=== PATIENT | male | born 2000 | race Caucasian/White ===

== ENCOUNTER 2019-05-24 02:36 | Emergency (ER) | payer SELFPAY ==
[2019-05-24 02:41] VITALS: BP 135/79; PULSE 99; RESP 18; O2SAT 98; BMI 33.3
--- NOTE | 2019-05-24 02:45 | ED_ITS ---
HPI - Abdominal Pain General: Chief Complaint: Abdominal Pain Stated Complaint: ABDOMEN PAIN Time Seen by Provider: 05/24/19 02:40 History of Present Illness: HPI narrative: Hector is a 18-year-old male who comes in complaining of midline lower abdominal pain for the past 2 months intermittently. He states tonight the pain is come on and is much more severe than normal and is caused him to feel nauseated and vomit. He denies any testicular pain or dysuria. He denies any fevers or chills or diarrhea. He is unaware of anything makes the pain better or worse. He is not tried nothing at home for this. He came in tonight because his symptoms are much worse than normal. Associated Symptoms: Reports nausea and vomiting; Denies chills, coffee ground emesis, constipation, GI cramping, diarrhea, dysuria, fever(s), hematochezia, hematuria, hematemesis, melena and syncope Review of Systems General: Reports: other (negative unless marked) Const: Denies: fever, chills, body aches, fatigue, malaise or diaphoresis Eyes: Denies: change in vision or blurry vision ENMT: Denies: throat pain, painful swallowing, hoarseness, ear pain, ear discharge, Change in hearing or nasal discharge Card: Denies: chest pain, palpitations, irregular heart rhythm, syncope, pre- syncope, shortness of breath on exertion or shortness of breath when lying down Resp: Denies: shortness of breath, productive cough, non-productive cough, wheezing, coughing up blood or chest congestion GI: Reports: abdominal pain, nausea and vomiting; Denies: vomiting blood, coffee grounds in vomit, diarrhea, constipation, cramping, blood in stool or black tarry stool : Denies: flank pain, difficulty urinating, painful urination, urinary frequency, urinary urgency, decreased urine ouput, urinary incontinence or blood in urine Musc: Denies: neck pain, back pain, extremity pain, extremity swelling, joint pain, joint swelling, joint warmth or joint stiffness Skin/Breast: Denies: rash, skin tenderness or yellow skin Neuro: Denies: headache, numbness in extremities, weakness in extremities, changes in sensation, lack of coordination, difficulty walking, dizziness, vertigo or confusion Endo: Denies: excessive thirst, tired all the time, cold intolerance, excessive sweating, flushing or hot flashes Marc/Lymph: Denies: easy bruising, easy bleeding, petechiae or enlarged lymph nodes All/Imm: Denies: hives, throat swelling, tongue swelling, facial swelling or acute wheezing PFSH ED PFSH: Medical History (Updated 05/24/19 @ 04:29 by Nelly Kang) Hypothyroidism Surgical History (Updated 05/24/19 @ 03:21 by Nelly Kang) History of adenoidectomy History of tonsillectomy Social History Smoking and tobacco status: current every day smoker Physical Exam Const: COMMON NORMALS: no apparent distress, oriented x3, no limitations, healthy appearing and well nourished EXAM LIMITATIONS: no altered mental status GENERAL APPEARANCE: cooperative, well kempt and well developed ORIENTATION/CONSCIOUSNESS: Yes awake HENMT: COMMON NORMALS: normocephalic, head/scalp atraumatic, hearing grossly normal bilaterally, external ears normal, EAC's normal, external nose normal and moist oral mucous membranes HEAD & SCALP: normal to inspection, normocephalic and atraumatic FACE & SINUS: normal facial exam and face symmetric NOSE: external nose normal and nares normal EXTERNAL EAR: Yes external ears normal EXTERNAL AUDITORY CANAL: EAC's normal MOUTH: oral and palatal mucosa normal and tongue normal Eye: COMMON NORMALS: PERRL, EOMs intact bilaterally, conjunctivae normal and no scleral icterus GENERAL EYE: normal appearance of both eyes and normal light reflex CONJUNCTIVA: Yes conjunctivae normal SCLERA: sclerae normal CORNEA: Yes corneas normal PUPIL: Yes PERRL DIRECT OPHTHALMOSCOPY: Yes normal light reflex Neck/C-Spine: COMMON NORMALS: full ROM, no lymphadenopathy, supple, no meningeal signs and no JVD GENERAL: Yes normal visual inspection and Yes trachea midline CERVICAL SPINE: Yes cervical ROM normal Chest: COMMONS NORMALS: inspection of chest normal and palpation of chest normal Resp: COMMON NORMALS: normal respiratory effort, no retractions, no use of accessory muscles and clear to auscultation bilaterally EFFORT & INSPECTION: Yes able to speak in complete sentences AUSCULTATION: clear to auscultation bilaterally Cardio: COMMON NORMALS: no JVD, regular rate, regular rhythm, S1 normal heart sound, S2 normal heart sound, no gallops, no clicks, no murmurs and no rub JUGULAR VENOUS DISTENTION: no JVD RATE: regular rate RHYTHM: regular rhythm HEART SOUNDS: S1 normal and S2 normal GI: COMMON NORMALS: soft to palpation, no hepatosplenomegaly and no masses PALPATION: Yes soft, Yes tender Details: LLQ and RLQ and Yes no hepatosplenomegaly : COMMON NORMALS: Yes no CVA tenderness BLADDER/KIDNEY EXAM: Yes no CVA tenderness Back/Pelvis: COMMON NORMALS: no CVA tenderness, thoracic and lumbar spine normal to inspection, no thoracic nor lumbar tenderness and thoraco-lumbar ROM normal Extremity: COMMON NORMALS: normal to inspection, full ROM, normal capillary refill, no joint enlargement, no clubbing, cyanosis or edema and no calf tenderness Neuro: COMMON NORMALS: oriented x3, CN's II-XII intact bilaterally, moves all extremities, no focal motor deficits and no sensory deficits noted MENINGEAL SIGNS: Yes no meningeal signs Psych: COMMON NORMALS: mental status grossly normal, thought process normal, cooperative, affect normal, speech normal and activity/motor behavior normal APPEARANCE: Yes well kempt SPEECH: Yes normal speech THOUGHT PROCESS: normal thought process Skin: COMMON NORMALS: no rashes or lesions noted, skin turgor normal, no jaundice, no petechiae and no mottling GENERAL SKIN EXAM: no rashes or lesions noted and turgor normal Course Vital Signs: Vital signs: Vital Signs Pulse Rate 78 05/24/19 03:43 Respiratory Rate 18 05/24/19 03:43 Blood Pressure 136/78 05/24/19 03:43 Pulse Oximetry 98 05/24/19 03:43 MDM - Abdominal Pain MDM Narrative: Medical decision making narrative: Hector is a 18-year-old male who comes in complaining of intermittent bilateral lower quadrant pain. Upon further history and examination his primary pain seems to be in the left lower quadrant. His white count was elevated and with his escalation of symptoms I chose to CT him. CT scan is unremarkable. At this time the patient would like to go home. He agrees to return should her symptoms change or worsen. With no evidence of bowel obstruction I believe this is ruled out by CT as well as his pancreas looking normal. He is Rufus had an appendectomy. There is no evidence of constipation. Differential Diagnosis: Differential diagnosis abdominal pain: Likely abdominal pain, acute appendicitis, calculus of kidney, constipation, diverticulitis, gastroenteritis, pancreatitis and small bowel obstruction Lab Data: Attestation: I reviewed the patient's lab results. Labs: Lab Results 05/24/19 05/24/19 05/24/19 Range/Units 02:56 02:56 03:06 WBC 15.1 H (4.5-13.0) 10^3/ uL RBC 5.42 H (4.1-5.3) 10^6/u L Hgb 16.8 H (11.7-16.6) g/dL Hct 48.7 (42.0-52.0) % MCV 89.9 (80-94) fL MCH 31.0 (28.0-34.0) pg MCHC 34.5 (30.0-36.0) g/dL RDW 12.1 (12.1-15.1) % Plt Count 261 (130-400) 10^3/c mm MPV 9.3 (7.4-10.4) fL Neut % (Auto) 75.2 % Lymph % (Auto) 18.3 % Twiggs % (Auto) 4.6 % Eos % (Auto) 1.3 % Baso % (Auto) 0.3 % Neut # (Auto) 11.4 H (1.8-8.0) 10^3/u L Lymph # (Auto) 2.8 (1.5-6.5) 10^3/u L Twiggs # (Auto) 0.7 (0.2-0.9) 10^3/u L Eos # (Auto) 0.2 (0.0-0.8) 10^3/u L Baso # (Auto) 0.0 (0.0-0.1) 10^3/u L Nucleated RBC % (a uto) 0 % Nucleated RBCs # 0.0 /100WBC Sodium 139 (136-145) mmol/L Potassium 3.5 (3.5-5.1) mmol/L Chloride 98 (98-107) mmol/L Carbon Dioxide 26 (22-29) mmol/L Anion Gap 18.5 (5-19) BUN 11 (6-20) mg/dL Creatinine 0.8 (0.7-1.2) mg/dL GFR Calculation 124.5 (90-130) mL/min Glucose 124 H (65-115) mg/dL Calculated Osmolal ity 285 (285-295) mOsm/k g Calcium 10.0 (8.5-10.5) mg/dL Total Bilirubin 0.3 (0.15-1.2) mg/dL AST 21 (0-40) U/L ALT 15 (0-41) U/L Alkaline Phosphata se 80 (40-130) IU/L Total Protein 7.8 (6.6-8.7) g/dL Albumin 5.2 (3.5-5.2) g/dL Globulin 2.6 (1.3-4.6) g/dL Lipase 84 H (13-60) U/L Urine Color Yellow (Yellow) Urine Appearance Hazy A (CLEAR) Urine pH 8 H (5-7) Ur Specific Gravit y 1.010 (1.005-1.030) Urine Protein Neg (Negative) Urine Glucose (UA) Norm (Normal) Urine Ketones 2+ H (Negative) Urine Blood Neg (Negative) Urine Nitrate Negative (Negative) Urine Bilirubin Neg (NEGATIVE) Urine Urobilinogen 1 H (Negative) mg/dL Ur Leukocyte Theresa ase Negative (Negative) Urine RBC None (0-2) /hpf Urine WBC None (0-5) /hpf Ur Squamous Epith Cells 0-4 H (0-5) Ur Transition Epit h Cell None /hpf Ur Renal Epithelia l Cell N /hpf Amorphous Sediment 4+ Urine Bacteria 1+ H (NONE) Imaging Data ^: CT Abd/Pel: Radiologist's impression: [facility] [place] [address] CT Scan Report Signed Patient: Talia Flores Unit #: [id number] : 2000 Age/Sex: 18 / M ADM Date: 05/24/19 Loc: ER Room/Bed: Attending Dr: Ordering Provider/Ordering MD: Nelly Kang DO Date of Service: 05/24/19 Procedure(s): CT abdomen pelvis w con* [id number] Accession Number(s): [id number] Report Number: [id number] PROCEDURE INFORMATION: Exam: CT Abdomen And Pelvis With Contrast Exam date and time: 05/24/2019 3:24 AM Age: 18 years old Clinical indication: Abdominal pain; Localized; Left lower quadrant (llq); Prior surgery; Surgery date: 6+ months; Surgery type: Appy TECHNIQUE: Imaging protocol: Computed tomography of the abdomen and pelvis with intravenous contrast. Total DLP: 1024.5 mGy-cm Radiation optimization: All CT scans at this facility use at least one of these dose optimization techniques: automated exposure control; mA and/or kV adjustment per patient size (includes targeted exams where dose is matched to clinical indication); or iterative reconstruction. Contrast material: OMNI 300; Contrast volume: 95 ml; Contrast route: IV; COMPARISON: No relevant prior studies available. FINDINGS: Liver: No mass. Gallbladder and bile ducts: No calcified stones. No ductal dilation. Pancreas: No ductal dilation. Spleen: No splenomegaly. Adrenals: No mass. Kidneys and ureters: No hydronephrosis. Stomach and bowel: No obstruction. No mucosal thickening. Appendix: Status post appendectomy. Intraperitoneal space: No free air. No significant fluid collection. Vasculature: No abdominal aortic aneurysm. Lymph nodes: No enlarged lymph nodes. Bladder: Unremarkable as visualized. Reproductive: Unremarkable as visualized. Bones/joints: Unremarkable. No acute fracture. Soft tissues: Unremarkable. CT/CT abdomen pelvis w con* [id number] IMPRESSION: No acute findings. Radiation Dose CTDIVOL = (mGy): DLP = 1024.5 (mGy-cm) Dictated By: Keagan Ewing MD Signed By: Keagan Ewing MD Signed Date/Time: 05/24/19422 DD/ 9 Discharge Plan Discharge Patient Disposition: Home, Self-Care Clinical Impression: Abdominal pain Qualifiers: Abdominal location: left lower quadrant Qualified Code(s): R10.32 - Left lower quadrant pain Condition: Stable Prescriptions: No Action No Known Home Medications RF: 0 Discharge Orders: Discharge Order (Routine); Ordered 05/24/19 Ordered By: Nelly Kang Referrals: Alberto Rainey MD [Primary Care Provider] - Discharge Diet: Advance as tolerated Discharge Activity: Resume usual activity Patient Instructions: Abdominal Pain (ED) Activity Restrictions/Additional Instructions: Please return to the ER immediately for any of the signs or symptoms listed on your discharge instruction sheets, worsening/changing of your symptoms, you are not getting better as quickly as expected, or for ANY other cause or concerns. Stand Alone Forms: Work/School Release Coding Level of Care Code ED Manager Quality Improvement for Chg Fwd Exam Comprehensive
[2019-05-24] MEDS: sodium chloride 0.9% 1,000 ML 100 ML IV (03:02)
[2019-05-24 03:17] LABS: Basophils % 0.3 %; Eosinophils # 0.2 10^3/uL (0.0-0.8); Eosinophils % 1.3 %; Hematocrit 48.7 % (42.0-52.0); Hemoglobin 16.8 g/dL (11.7-16.6); Lymphocytes # 2.8 10^3/uL (1.5-6.5); Lymphocytes % 18.3 %; Mean Corpuscular HGB Conc 34.5 g/dL (30.0-36.0); Mean Corpuscular Volume 89.9 fL (80-94); Mean Platelet Volume 9.3 fL (7.4-10.4); Monocytes # 0.7 10^3/uL (0.2-0.9); Monocytes % 4.6 %; Neutrophils # 11.4 10^3/uL (1.8-8.0); Neutrophils % 75.2 %; Nucleated Red Blood Cells % 0 %; Platelet Count 261 10^3/cmm (130-400); Red Blood Count 5.42 10^6/uL (4.1-5.3); Red Cell Distribution Width 12.1 % (12.1-15.1); White Blood Count 15.1 10^3/uL (4.5-13.0)
[2019-05-24 03:19] LABS: Alanine Aminotransferase 15 U/L (0-41); Albumin Level 5.2 g/dL (3.5-5.2); Alkaline Phosphatase 80 IU/L (40-130); Anion Gap 18.5 (5-19); Aspartate Amino Transferase 21 U/L (0-40); Blood Urea Nitrogen 11 mg/dL (6-20); Carbon Dioxide 26 mmol/L (22-29); Chloride 98 mmol/L (98-107); Globulin 2.6 g/dL (1.3-4.6); Glomerular Filtration Rate 124.5 mL/min (90-130); Glucose 124 mg/dL (65-115); Lipase 84 U/L (13-60); Osmolality Calculated 285 mOsm/kg (285-295); Potassium 3.5 mmol/L (3.5-5.1); Sodium 139 mmol/L (136-145); Total Bilirubin 0.3 mg/dL (0.15-1.2); Total Protein 7.8 g/dL (6.6-8.7)
--- NOTE | 2019-05-24 03:19 | CTR_ITS ---
PROCEDURE INFORMATION: Exam: CT Abdomen And Pelvis With Contrast Exam date and time: 05/24/2019 3:24 AM Age: 18 years old Clinical indication: Abdominal pain; Localized; Left lower quadrant (llq); Prior surgery; Surgery date: 6+ months; Surgery type: Appy TECHNIQUE: Imaging protocol: Computed tomography of the abdomen and pelvis with intravenous contrast. Total DLP: 1024.5 mGy-cm Radiation optimization: All CT scans at this facility use at least one of these dose optimization techniques: automated exposure control; mA and/or kV adjustment per patient size (includes targeted exams where dose is matched to clinical indication); or iterative reconstruction. Contrast material: OMNI 300; Contrast volume: 95 ml; Contrast route: IV; COMPARISON: No relevant prior studies available. FINDINGS: Liver: No mass. Gallbladder and bile ducts: No calcified stones. No ductal dilation. Pancreas: No ductal dilation. Spleen: No splenomegaly. Adrenals: No mass. Kidneys and ureters: No hydronephrosis. Stomach and bowel: No obstruction. No mucosal thickening. Appendix: Status post appendectomy. Intraperitoneal space: No free air. No significant fluid collection. Vasculature: No abdominal aortic aneurysm. Lymph nodes: No enlarged lymph nodes. Bladder: Unremarkable as visualized. Reproductive: Unremarkable as visualized. Bones/joints: Unremarkable. No acute fracture. Soft tissues: Unremarkable. CT/CT abdomen pelvis w con* [id number] IMPRESSION: No acute findings. Radiation Dose CTDIVOL = (mGy): DLP = 1024.5 (mGy-cm)
[2019-05-24 03:43] VITALS: BP 136/78; PULSE 78; RESP 18; O2SAT 98
[2019-05-24 03:47] LABS: Urine Appearance Hazy (CLEAR); Urine Color Yellow (Yellow); pH Urine 8 (5-7)
[2019-05-24 03:48] LABS: Bilirubin Urine Neg (NEGATIVE); Blood Urine Neg (Negative); Glucose Urine UA Norm (Normal); Ketones Urine 2+ (Negative); Leukocyte Esterase Urine Negative (Negative); Nitrate Urine Negative (Negative); Protein Urine Neg (Negative); Urobilinogen Urine 1 mg/dL (Negative)
[2019-05-24 03:50] LABS: Add Urine Culture? No; Amorphous Sediment Urine 4+; Bacteria Urine 1+; Renal Epithelial Cells Urine N /hpf; Squamous Epithelial Cell Urine 0-4 (0-5)
[2019-05-24] MEDS: iohexol 300 mg/mL 100 mL Btl IV (04:08)
--- NOTE | 2019-05-24 04:10 | PC.NURSE ---
Pt to ct via stretcher at this time.
[2019-05-24 04:49] VITALS: BP 128/86; PULSE 99; RESP 18; O2SAT 99
== END 2019-05-24 04:50 | disposition home or self-care (01) ==
PROVIDERS: Emergency Provider Emergency Medicine; Family Provider Family Medicine; PCP Family Medicine
DX: R10.32 Left lower quadrant pain (principal); E03.9 Hypothyroidism, unspecified; F17.210 Nicotine dependence, cigarettes, uncomplicated
CPT/HCPCS: 12345; 74177; 80053; 81001; 83690; 85025; 96360; 96361; 99282; 99283; A9270; J7030; Q9967

== ENCOUNTER → 2020-06-30 10:56 | Outpatient (BNVA) | payer SELFPAY | PROVIDERS: Family Provider Family Medicine; PCP Family Medicine; Visit Provider Nurse Practitioner | DX: J02.9 Acute pharyngitis, unspecified (principal) | CPT/HCPCS: 87071; 87880 ==

== ENCOUNTER 2020-11-21 21:43 | Emergency (ER) | payer SELFPAY ==
[2020-11-21 21:51] VITALS: BP 132/73; PULSE 99; RESP 18; TEMP 37.1; O2SAT 99; BMI 32.5
--- NOTE | 2020-11-21 21:55 | XRR_ITS ---
PROCEDURE INFORMATION: Exam: XR Left Foot Exam date and time: 11/21/2020 9:55 PM Age: 20 years old Clinical indication: Injury or trauma; Other: Splinter in foot; Puncture; Left; Foreign body involvement not specified; Additional info: Evaluate for injuries TECHNIQUE: Imaging protocol: XR Left foot. Views: 1 or 2 views. Total images: 2 COMPARISON: No relevant prior studies available. FINDINGS: Bones/joints: No visible evidence of active or acute osseous pathology. Soft tissues: Soft tissues without evidence of edema, swelling, contusion, emphysema, or radiopaque foreign body. XR/XR foot LT 2V [id number] IMPRESSION: 1. Nonacute. 2. No visible radiopaque foreign body.
[2020-11-21] MEDS: acetaminophen 500 mg Tablet PO (22:09)
--- NOTE | 2020-11-21 22:32 | W.ED.GENADLT ---
HPI - General Adult General: Chief complaint: Extremity Injury, Lower Stated complaint: Left foot injury Time Seen by Provider: 11/21/20 21:55 History of Present Illness: HPI narrative: 20-year-old male UTD w/ tetanus presenting to the emergency room after sticking his left foot on a piece of plywood. Patient says that this happened around 10 AM yesterday and since then, has had significant foot pain. Patient has been unable to remove the foreign object in the foot. He also noticed redness over the dorsal aspect of the left foot this morning. Denies any fever or chills, drainage, but reports significant pain around the foreign object site. Onset:1 day ago Duration:1 day Location:home Severity:mild/moderate Review of Systems Narrative: Constitutional: No fever, no chills. HEENT: No vision changes CV: No chest pain, no palpitations PULM: no cough, no dyspnea. GI: No abdominal pain, no N/V/D. : No dysuria MSKEL: No muscle pain, +retained foreign object in L foot SKIN: No new rashes, no lesions. NEURO: No headache, no focal weakness. HEME: No visible bruises PSYCH: Normal mood PFSH ED PFSH: Medical History Hypothyroidism Surgical History History of adenoidectomy History of tonsillectomy Social History Smoking and tobacco status: current every day smoker Physical Exam Narrative: EXAM NARRATIVE: Head: Atraumatic Eyes: PERRL, conjunctiva without injection ENT: Mucous membrane moist NECK: Supple, ROM intact LUNGS: LCTAB, no crackles/rhonchi CV: RRR ABDOMEN: Soft, nontender in all quadrants EXTREMITY: Normal ROM, +L foot volar surface with embedded plywood without surrounding erythema SKIN: +Mild L dorsal erythema NEURO: Awake and alert, no focal motor deficits PSYCH: Normal mood and affect Course Vital Signs: Vital signs: Vital Signs Temperature 98.8 F 11/21/20 21:51 Pulse Rate 99 11/21/20 21:51 Respiratory Rate 18 11/21/20 21:51 Blood Pressure 132/73 11/21/20 21:51 Pulse Oximetry 99 11/21/20 21:51 MDM - General Adult MDM Narrative: Medical decision making narrative: 20-year-old male presents emergency room with retained foreign object in the left foot. The observed to be embedded on the volar aspect of the left foot. I have applied judicious amount of lidocaine after the foot was cleaned with Hibiclens. The 2cm foreign object was successfully removed. On the dorsal surface, patient is noted to have mild erythema. I marked the surrounding of erythema for patient to track progression of cellulitis. Bedside ultrasound did confirm cobblestoning along the erythematous site. Rx augmentin BID x 7 days Disposition: Discharge. Patient is up-to-date with tetanus today since last shot was in high school. No suspect dirty wound, decision was made to not give Tdap today. Cellulitis concerns, patient was given follow-up with podiatry to ensure no worsening cellulitis or foot infection. I have given patient follow up with our case management assistant to be seen by our outpatient Podiatry. Patient aware of a call from our case management assistant to schedule for appointment(s) and verbalizes understanding of the importance of following up. Given return precautions for any signs of infection. Imaging Data^: Other Imaging: Radiologist's impression: [address] [id number] ReportSigned Patient: Talia Flores #: [id number]: [id number]#:[id number]/Sex: 20 / MADM Date: 11/21/20Loc: [facility]/Bed:Attending Dr: Ordering Provider/Ordering MD: Carolyn Loving MD Date of Service: 11/21/20 Procedure(s): XR foot LT 2V 70441 Accession Number(s): [id number] Report Number: [id number] PROCEDURE INFORMATION: Exam: XR Left Foot Exam date and time: 11/21/2020 9:55 PM Age: 20 years old Clinical indication: Injury or trauma; Other: Splinter in foot; Puncture; Left; Foreign body involvement not specified; Additional info: Evaluate for injuries TECHNIQUE: Imaging protocol: XR Left foot. Views: 1 or 2 views. Total images: 2 COMPARISON: No relevant prior studies available. FINDINGS: Bones/joints: No visible evidence of active or acute osseous pathology. Soft tissues: Soft tissues without evidence of edema, swelling, contusion, emphysema, or radiopaque foreign body. XR/XR foot LT 2V [id number] IMPRESSION: 1. Nonacute. 2. No visible radiopaque foreign body. Dictated By:Richard Mendoza By:Richard Mendoza Date/Time:11/21/203DD/ 40 Discharge Plan Discharge Patient Disposition: Home Clinical Impression: Retained foreign body Condition: Stable Prescriptions: New Augmentin 875-125 mg tablet 1 tab PO BID 7 Days Qty: 14 RF: 0 Discharge Orders: Discharge ED (Routine); Ordered 11/21/20 Ordered By: Carolyn Loving Referrals: Alberto Rainey MD [Primary Care Provider] - Discharge Diet: Advance as tolerated Discharge Activity: Resume usual activity Patient Instructions: Cellulitis (ED) Activity Restrictions/Additional Instructions: Our case management assistant will have you follow-up with Podiatry in the next few days. You would be expected to have a phone call with our case management assistant who will put you on the schedule. Come to the emergency room if there is any worsening redness, fever/chills, any foot pain or any new or concerning complaints. Coding Level of Care Code ED Woolen Suiting Shrinker for Rashawn Nagel
--- NOTE | 2020-11-21 22:36 | PC.NURSE ---
patient is pretty sure he is up to date on his tdap. will chaeck his record when he gets home and will get one if not.
--- NOTE | 2020-11-22 09:14 | DCPLANNER ---
global implementation manager had message to schedule a follow up appointment for patient with ortho. global implementation manager called the ortho clinic, spoke with Nati, gave clinic patients information. global implementation manager was told that patients information would be printed and reviewed. Clinic will call patient with appointment information.
--- NOTE | 2020-11-28 15:33 | DCPLANNER ---
Patient had a follow up appointment scheduled for 11.23.[address] Bacon at [facility] - patient did not attend appointment.
== END 2020-11-21 22:38 | disposition home or self-care (01) ==
PROVIDERS: Emergency Provider Emergency Medicine; PCP Family Medicine
DX: M79.5 Residual foreign body in soft tissue (principal); F17.210 Nicotine dependence, cigarettes, uncomplicated
CPT/HCPCS: 73620; 99282

== ENCOUNTER 2021-09-19 15:42 | Emergency (ER) | payer SELFPAY ==
[2021-09-19 16:46] VITALS: BP 110/73; PULSE 102; RESP 15; TEMP 36.7; O2SAT 98; BMI 29.9
--- NOTE | 2021-09-19 17:08 | ED_ITS ---
HPI - Extremity Problem General: Chief complaint: Extremity Problem,Nontraumatic Stated complaint: Spot on his arm, Time Seen by Provider: 09/19/21 17:04 History of Present Illness: 21-year-old male patient comes in today with complaints of redness and swelling to the right posterior elbow. Patient reports he has noticed the redness since pushing on it yesterday when he thought it was just a pimple. Patient he also had an episode of passing out in the shower this morning. Patient appears nontoxic. Patient does have a history of staph infection which occurred several years ago. Patient denies diabetes. Patient reports no routine medications. Associated symptoms: Deny chest pain Review of Systems General: Reports: 10 or more systems reviewed and unremarkable except in HPI and below Card: Denies: chest pain Resp: Denies: dyspnea Musc: Reports: joint redness (Posterior left elbow) [facility] / [facility] ED PFSH: Medical History (Updated 09/19/21 @ 18:29 by DIANNE Cornejo) Hypothyroidism Psychiatric care Surgical History History of adenoidectomy History of tonsillectomy Social History Smoking and tobacco status: current every day smoker Physical Exam Const: COMMON NORMALS: alert HENMT: COMMON NORMALS: normocephalic HEAD & SCALP: normocephalic Neck/C-Spine: COMMON NORMALS: full ROM Resp: COMMON NORMALS: normal respiratory effort and clear to auscultation b ilaterally AUSCULTATION: clear to auscultation bilaterally Cardio: COMMON NORMALS: regular rate and regular rhythm RATE: regular rate RHYTHM: regular rhythm Extremity: LEFT UPPER EXTREMITY: Yes elbow joint (Induration and redness noted to the posterior left elbow along the olecrano) Left elbow: Yes inspection, Yes palpation, Yes ROM (Normal) and Yes neurovascular exam Neuro: SENSORIUM/ORIENTATION: Yes alert Skin: NARRATIVE SKIN EXAM: Redness and induration posterior left elbow. No palpable or fluctuant mass. Course Vital Signs: Vital signs: Vital Signs Temperature 98.1 F 09/19/21 16:46 Pulse Rate 102 H 09/19/21 16:46 Respiratory Rate 15 09/19/21 16:46 Blood Pressure 110/73 09/19/21 16:46 Pulse Oximetry 98 09/19/21 16:46 Oxygen Delivery Me thod 09/19/21 16:46 MDM - Extremity (Nontraumatic) Medical Decision Making 21-year-old male patient comes in with redness and inflammation to the left pos terior elbow. On exam there is no fluctuant mass. Vital signs are normal. Differential diagnosis includes cellulitis, bursitis, abscess. X-ray of the elbow noted no bony abnormality and was suggestive of a possible olecranon bursitis. Laboratory values noted a white blood cell count 17. CMP was unremarkable. Patient was given 1 L of IV fluids, 600 mg of clindamycin, with some ondansetron and ketorolac for pain and nausea. Patient reported feeling better after fluids. Suspect patient might have a vasovagal due to pain and infection in the elbow. No sign of a septic arthritis at this time. Recommended patient take 600 mg of clindamycin 3 times a day for the next 7 days. Patient was also prescribed naproxen and hydrocodone for pain and inflammation. Patient reported understanding of care plan need for follow-up or return to the ER. Lab Data : 09/19/21 17:54 09/19/21 17:54 Radiology Impressions Elbow X-Ray 09/19/21 17:15 IMPRESSION: 1. No osseous abnormality. 2. Possible olecranon bursitis. Laboratory Results WBC 17.1 10^3/uL (4.0-10.0) H 09/19/21 17:54 RBC 5.66 10^6/uL (4.1-5.3) H 09/19/21 17:54 Hgb 17.3 g/dL (11.7-16.6) H 09/19/21 17:54 Hct 50.4 % (42.0-52.0) 09/19/21 17:54 MCV 89.0 fl (80-94) 09/19/21 17:54 MCH 30.6 pg (28.0-34.0) 09/19/21 17:54 MCHC 34.3 g/dL (30.0-36.0) 09/19/21 17:54 RDW 12.3 % (12.1-15.1) 09/19/21 17:54 Plt Count 263 10^3/cmm (130-400) 09/19/21 17:54 MPV 8.7 fL (7.4-10.4) 09/19/21 17:54 Neut % (Auto) 85.1 % 09/19/21 17:54 Lymph % (Auto) 7.7 % 09/19/21 17:54 [place] % (Auto) 6.5 % 09/19/21 17:54 Eos % (Auto) 0.1 % 09/19/21 17:54 Baso % (Auto) 0.3 % 09/19/21 17:54 Neut # (Auto) 14.56 10^3/uL (1.8-7.7) H 09/19/21 17:54 Lymph # (Auto) 1.3 10^3/uL (0.8-4.8) 09/19/21 17:54 [place] # (Auto) 1.1 10^3/uL (0.2-0.9) H 09/19/21 17:54 Eos # (Auto) 0.0 10^3/uL (0.0-0.8) 09/19/21 17:54 Baso # (Auto) 0.1 10^3/uL (0.0-0.1) 09/19/21 17:54 Nucleated RBC % (auto) 0 % 09/19/21 17:54 Nucleated RBCs # 0.0 /100WBC 09/19/21 17:54 Sodium 136 mmol/L (136-145) 09/19/21 17:54 Potassium 3.7 mmol/L (3.5-5.1) 09/19/21 17:54 Chloride 94 mmol/L (98-107) L 09/19/21 17:54 Carbon Dioxide 26 mmol/L (22-29) 09/19/21 17:54 Anion Gap 19.7 (5-19) H 09/19/21 17:54 BUN 13 mg/dL (6-20) 09/19/21 17:54 Creatinine 0.7 mg/dL (0.7-1.2) 09/19/21 17:54 GFR Calculation 141.0 mL/min (90-130) H 09/19/21 17:54 Glucose 112 mg/dL (65-115) 09/19/21 17:54 Calculated Osmolality 283 mOsm/kg (285-295) L 09/19/21 17:54 Calcium 10.1 mg/dL (8.5-10.5) 09/19/21 17:54 Discharge Plan Discharge Patient Disposition: Home Clinical Impression: Bursitis of left elbow Qualifiers: Elbow bursitis location: olecranon bursitis Qualified Code(s): M70.22 - Olecranon bursitis, left elbow Condition: Stable Prescriptions: New clindamycin HCl 300 mg capsule 600 mg PO TID 7 Days Qty: 42 0RF naproxen 500 mg tablet 500 mg PO BID Qty: 20 0RF hydrocodone-acetaminophen 5-325 mg tablet 1 tab PO Q8H PRN (Reason: pain (scale score 7-10)) Qty: 7 0RF Discharge Orders: Discharge ED (Routine); Ordered 09/19/21 Ordered By: Hilton Marie Referrals: Alberto Rainey MD [Primary Care Provider] - Discharge Diet: Usual diet Discharge Activity: Increase activity as tolerated Patient Instructions: Elbow Bursitis (ED), Opioid Safety Activity Restrictions/Additional Instructions: Home and rest. Drink plenty of water with medication. Use clindamycin 600 mg, 2 capsules of 300, 3 times a day for 7 days. Do not pick at the wound. Take naproxen 500 mg 1 tablet twice a day for the next 10 days for pain and inflammation. Use acetaminophen for further pain control. Use hydrocodone for severe pain. You may need to take your antibiotic with food on your stomach to avoid nausea. Follow-up with primary care in 2 to 3 days for recheck. You can follow-up at the urgent care or return to the ER if you are unable to get into the primary care. Return to ER for worsening symptoms such as fever greater than 100.4, redness and swelling surrounding the elbow completely, or new concerns. Coding Level of Care Code ED [employer] Technician for Rashawn Nagel
--- NOTE | 2021-09-19 17:15 | XRR_ITS ---
PROCEDURE INFORMATION: Exam: XR Left Elbow Exam date and time: 09/19/2021 5:24 PM Age: 21 years old Clinical indication: Pain; Elbow; Left; Additional info: Bursitis TECHNIQUE: Imaging protocol: Radiologic exam of the Left elbow. Views: 3 or more views. COMPARISON: No relevant prior studies available. FINDINGS: Bones/joints: Normal. Soft tissues: Soft tissue swelling of the proximal posterior ulna. XR/XR elbow LT min 3V* [id number] IMPRESSION: 1. No osseous abnormality. 2. Possible olecranon bursitis.
[2021-09-19] MEDS: ketorolac 30 mg/mL INJ 15 MG IVP (17:59)
[2021-09-19] MEDS: ondansetron 2 mg/ML SDV 2 mL 4 MG IVP (17:59)
[2021-09-19] MEDS: sodium chloride 0.9% 1,000 ML 999 ML IV (17:59)
[2021-09-19] MEDS: clindamycin 600 MG/50 ML PREMIX 100 MG IV (18:00)
[2021-09-19 18:03] LABS: Basophils # 0.1 10^3/uL (0.0-0.1); Basophils % 0.3 %; Eosinophils % 0.1 %; Hematocrit 50.4 % (42.0-52.0); Hemoglobin 17.3 g/dL (11.7-16.6); Lymphocytes # 1.3 10^3/uL (0.8-4.8); Lymphocytes % 7.7 %; Mean Corpuscular HGB Conc 34.3 g/dL (30.0-36.0); Mean Corpuscular Hemoglobin 30.6 pg (28.0-34.0); Mean Platelet Volume 8.7 fL (7.4-10.4); Monocytes # 1.1 10^3/uL (0.2-0.9); Monocytes % 6.5 %; Neutrophils # 14.56 10^3/uL (1.8-7.7); Neutrophils % 85.1 %; Nucleated Red Blood Cells % 0 %; Platelet Count 263 10^3/cmm (130-400); Red Blood Count 5.66 10^6/uL (4.1-5.3); Red Cell Distribution Width 12.3 % (12.1-15.1); White Blood Count 17.1 10^3/uL (4.0-10.0)
[2021-09-19 18:43] LABS: Anion Gap 19.7 (5-19); Blood Urea Nitrogen 13 mg/dL (6-20); Calcium 10.1 mg/dL (8.5-10.5); Carbon Dioxide 26 mmol/L (22-29); Chloride 94 mmol/L (98-107); Glucose 112 mg/dL (65-115); Osmolality Calculated 283 mOsm/kg (285-295); Potassium 3.7 mmol/L (3.5-5.1); Sodium 136 mmol/L (136-145)
== END 2021-09-19 19:31 | disposition home or self-care (01) ==
PROVIDERS: Emergency Provider Nurse Practitioner Family; PCP Family Medicine
DX: M70.22 Olecranon bursitis, left elbow (principal); F17.210 Nicotine dependence, cigarettes, uncomplicated
CPT/HCPCS: 73080; 80048; 85025; 96365; 96375; 99284; J1885; J2405; J3490; J7030